=== PATIENT | male | born 1995 | race Hispanic/Latino ===

== ENCOUNTER 2022-11-03 15:08 | Emergency (ER) | payer SELFPAY ==
[2022-11-03 15:55] LABS: Specific Gravity > 1.030 (1.005-1.030); Urine Bacteria 20-50 /HPF (<20); Urine Bilirubin NEGATIVE (Negative); Urine Blood 3+ (OVER) (Negative); Urine Clarity Turbid (Clear); Urine Color Yellow (Yellow); Urine Glucose NEGATIVE (Negative); Urine Mucus 4+ /HPF (None Seen); Urine Protein 1+ (Negative); Urine RBC >50 /HPF (None Seen); Urine Urobilinogen 1+ (Normal); Urine pH 6.5 (5.0-7.0)
--- NOTE | 2022-11-03 17:05 | RAD REPORT ---
EXAM DESCRIPTION: CT - Stone Protocol - 11/03/2022 4:55 pm CLINICAL HISTORY: Flank pain. hematuria, low back pain COMPARISON: No comparisons TECHNIQUE: Axial images were obtained without oral or IV contrast. Lack of contrast limits solid org an and vascular assessment. The [id number] spans the entirety of the system partially obscuring uppermost abdomen and lung bases. Coronal reformatted images were obtained and reviewed. All CT scans are performed using dose optimization technique as appropriate and may include automated exposure control or mA/KV adjustment according to patient size. FINDINGS: The lower lung beth are clear. Imaged portions of the liver and spleen show no suspicious findings on non-contrast imaging. The panc reas and adrenal glands are normal. No pathologic lymphadenopathy in the abdomen or pelvis. No urinary tract stones or obstructive uropathy. Mild thickened and slightly inflamed urinary bladder . No bowel obstruction, free air, free fluid or abscess. Normal appendix noted. No significant bony abnormality. IMPRESSION: No urinary tract stones or obstructive uropathy. Mild cystitis is suspected.
--- NOTE | 2022-11-03 17:30 | ER ---
Nurse's Notes [facility] Name: David Gamble Age: 27 yrs Sex: Male : 1995 Arrival Date: 11/03/2022 Time: 15:08 Bed 2 Private MD: Diagnosis: UTI/ Urinary tract infection, site not specified Presentation: 11/03 15:11 Chief complaint: Patient states: peeing blood since last night , mid back pain and nj1 burning when he urinates. Coronavirus screen: At this time, the client does not indicate any symptoms associated with coronavirus-19. Ebola Screen: Patient negative for fever greater than or equal to 101.5 degrees Fahrenheit, and additional compatible Ebola Virus Disease symptoms Patient denies exposure to infectious person. Patient denies travel to an Ebola-affected area in the 21 days before illness onset. No symptoms or risks identified at this time. Initial Sepsis Screen: Does the patient meet any 2 criteria? No. Patient's initial sepsis screen is negative. Does the patient have a suspected source of infection? No. Patient's initial sepsis screen is negative. Risk Assessment: Do you want to hurt yourself or someone else? Patient reports no desire to harm self or others. Onset of symptoms was November 02, 2022. 15:11 Method Of Arrival: Ambulatory [facility] 15:11 Acuity: HEMALATHA 3 nj1 Triage Assessment: 16:00 General: Appears in no apparent distress. comfortable, Behavior is calm, cooperative. db Pain: Complains of pain in abdomen. Historical: - Allergies: 15:13 No Known Allergies; nj1 - Home Meds: 15:13 None [Active]; nj1 - PMHx: 15:13 None; nj1 - PSHx: 15:13 None; nj1 - Immunization history:: Client reports having NOT received the Covid vaccine. - Social history:: Smoking status: Patient denies any tobacco usage or history of. Screenin:45 [facility] ED Fall Risk Assessment (Adult) History of falling in the last 3 months, db including since admission No falls in past 3 months (0 pts) Confusion or Disorientation No (0 pts) Intoxicated or Sedated No (0 pts) Impaired Gait No (0 pts) Mobility Assist Device Used No (0 pt) Altered Elimination No (0 pt) Score/Fall Risk Level 0 - 2 = Low Risk Oriented to surroundings, Maintained a safe environment. Abuse screen: Denies threats or abuse. Denies injuries from another. Nutritional screening: No deficits noted. Tuberculosis screening: No symptoms or risk factors identified. Assessment: 15:43 Reassessment: Patient appears in no apparent distress at this time. Patient and/or db family updated on plan of care and expected duration. Pain level reassessed. Patient is alert, oriented x 3, equal unlabored respirations, skin warm/dry/pink. General: Appears in no apparent distress. comfortable, Behavior is calm, cooperative. Vital Signs: 15:11 BP 144 / 94; Pulse 91; Resp 16; Temp 97.7; Pulse Ox 100% ; Weight 84.37 kg; Height 5 nj1 ft. 6 in. ; Pain 8/10; 16:30 BP 140 / 83; Pulse 88; Resp 16; Pulse Ox 100% on R/A; db 17:49 BP 134 / 79; Pulse 76; Pulse Ox 100% on R/A; ap3 15:11 Body Mass Index 30.02 (84.37 kg, 167.64 cm) nj1 15:11 Pain Scale: Adult nj1 ED Course: 15:09 Patient arrived in ED. rg4 15:12 Ernst Pantoja PA is PHCP. cp 15:12 Guru Lundberg MD is Attending Physician. cp 15:13 Triage completed. nj1 15:14 Arm band placed on. nj1 15:27 Urinalysis W/Microscopic Sent. iw 15:30 Marianna Garcia, RN is Primary Nurse. db 16:45 Patient has correct armband on for positive identification. Bed in low position. Call db light in reach. Side rails up X 1. 16:57 CT Stone Protocol In Process Unspecified. EDMS 17:48 No provider procedures requiring assistance completed. Patient did not have IV access ap3 during this emergency room visit. Administered Medications: 17:20 CANCELLED (Physician Discretion): AZITHromycin PO 1 grams PO once cp 17:48 Drug: Rocephin (cefTRIAXone) IM 1 grams Route: IM; Site: right gluteus; ap3 17:49 Follow up: Response: No adverse reaction ap3 Medication: 17:49 VIS not applicable for this client. ap3 Outcome: 17:30 Discharge ordered by . cp 17:49 Discharged to home ambulatory. ap3 17:49 Condition: good 17:49 Discharge instructions given to patient, Instructed on discharge instructions, follow up and referral plans. medication usage, Demonstrated understanding of instructions, follow-up care, medications, Prescriptions given X 2. 17:53 Patient left the ED. ap3 Signatures: Dispatcher [employer] EDMS Blanca Robertson RN RN iw Ernst Pantoja PA PA cp Garcia, Rubi rg4 Noa Ortiz RN RN ap3 Marianna Garcia RN RN db Nora Burns RN RN nj1 Corrections: (The following items were deleted from the chart) 15:14 15:11 Pulse 91bpm; Resp 16bpm; Pulse Ox 100%; Temp 97.7F; 84.37 kg; Height 5 ft. 6 in.; nj1 BMI: 30.0; Pain 8/10, Adult; nj1
--- NOTE | 2022-11-03 17:31 | EDPHYS ---
Physician Documentation [facility] Name: David Gamble Age: 27 yrs Sex: Male : 1995 Arrival Date: 11/03/2022 Time: 15:08 Bed 2 Private MD: ED Physician Guru Lundberg HPI: 11/03 15:30 This 27 yrs old Male presents to ER via Ambulatory with complaints of Urinary cp Problem. 15:30 The patient presents with urinary symptoms, dysuria, hematuria that started last night, cp mid low back pain. Onset: The symptoms/episode began/occurred yesterday. Associated signs and symptoms: Pertinent positives: dysuria, fever, hematuria, Pertinent negatives: abdominal pain, constipation, vomiting. Severity of symptoms: in the emergency department the symptoms are unchanged, despite home interventions. 15:30 Patient reports he is and no concern for STIs. Denies penile discharge. cp Historical: - Allergies: 15:13 No Known Allergies; nj1 - Home Meds: 15:13 None [Active]; nj1 - PMHx: 15:13 None; nj1 - PSHx: 15:13 None; nj1 - Immunization history:: Client reports having NOT received the Covid vaccine. - Social history:: Smoking status: Patient denies any tobacco usage or history of. ROS: 15:35 Constitutional: Positive for chills, Negative for fever, poor PO intake. cp 15:35 Respiratory: Negative for cough, shortness of breath, wheezing. cp 15:35 Abdomen/GI: Negative for abdominal pain, nausea, vomiting, and diarrhea. 15:35 : Positive for hematuria, burning with urination, Negative for penile discharge, testicular pain Exam: 15:40 Constitutional: The patient appears in no acute distress, alert, awake, comfortable, cp non-toxic, well developed, well nourished. 15:40 Head/Face: Normocephalic, atraumatic. cp 15:40 Eyes: Periorbital structures: appear normal, Conjunctiva: normal, no exudate, no injection, Sclera: no appreciated abnormality, Lids and lashes: appear normal, bilaterally. 15:40 ENT: External ear(s): are unremarkable, Nose: is normal, Mouth: Lips: moist, Oral mucosa: pink and intact, moist, Posterior pharynx: is normal, airway is patent, no erythema, no exudate. 15:40 Chest/axilla: Inspection: normal. 15:40 Cardiovascular: Rate: normal, Rhythm: regular. 15:40 Respiratory: the patient does not display signs of respiratory distress, Respirations: normal, no use of accessory muscles, no retractions, labored breathing, is not present, Breath sounds: are clear throughout, no decreased breath sounds, no stridor, no wheezing. 15:40 Abdomen/GI: Inspection: abdomen appears normal, Bowel sounds: active, Palpation: abdomen is soft and non-tender, in all quadrants. 15:40 Back: pain, that is mild, of the low back area, ROM is normal. 15:40 Skin: no rash present. 15:40 Neuro: Orientation: to person, place \T\ time. Mentation: is normal, Motor: moves all fours, strength is normal, Sensation: is normal, Gait: is steady, at a normal pace, without difficulty. Vital Signs: 15:11 BP 144 / 94; Pulse 91; Resp 16; Temp 97.7; Pulse Ox 100% ; Weight 84.37 kg; Height 5 nj1 ft. 6 in. ; Pain 8/10; 16:30 BP 140 / 83; Pulse 88; Resp 16; Pulse Ox 100% on R/A; db 17:49 BP 134 / 79; Pulse 76; Pulse Ox 100% on R/A; ap3 15:11 Body Mass Index 30.02 (84.37 kg, 167.64 cm) nj1 15:11 Pain Scale: Adult nj1 MDM: 15:16 Patient medically screened. cp 16:00 Differential diagnosis: UTI, urinary retention, prostatitis, urethritis, kidney stone. cp 17:30 Data reviewed: vital signs, nurses notes, lab test result(s), radiologic studies, CT cp scan, and as a result, I will discharge patient. 17:30 Consideration of Admission/Observation Escalation of care including cp admission/observation considered. 17:33 Test considered but Not performed: Labs: cbc, bmp. cp 17:33 Counseling: I had a detailed discussion with the patient and/or guardian regarding: the cp historical points, exam findings, and any diagnostic results supporting the discharge/admit diagnosis, lab results, radiology results, the need for outpatient follow up, a family practitioner, to return to the emergency department if symptoms worsen or persist or if there are any questions or concerns that arise at home. 11/03 15:23 Order name: Urinalysis W/Microscopic; Complete Time: 16:32 cp 11/03 16:32 Interpretation: Reviewed. cp 11/03 15:58 Order name: Urine Culture EDME 11/03 15:37 Order name: CT Stone Protocol; Complete Time: 17:18 cp Administered Medications: 17:20 CANCELLED (Physician Discretion): AZITHromycin PO 1 grams PO once cp 17:48 Drug: Rocephin (cefTRIAXone) IM 1 grams Route: IM; Site: right gluteus; ap3 17:49 Follow up: Response: No adverse reaction ap3 Disposition Summary: 11/03/22 17:30 Discharge Ordered Location: Home cp Problem: new cp Symptoms: have improved cp Condition: Stable cp Diagnosis - UTI/ Urinary tract infection, site not specified cp Followup: cp - With: Private Physician - When: 1 - 2 days - Reason: Worsening of condition Discharge Instructions: - Discharge Summary Sheet cp - Urinary Tract Infection, Adult cp Forms: - Medication Reconciliation Form cp - Thank You Letter cp - Antibiotic Education cp - Prescription Opioid Use cp - Work release form ap3 Prescriptions: - Ibuprofen 800 mg Oral Tablet - take 1 tablet by ORAL route every 8 hours As needed take with food; 30 tablet; cp Refills: 0, Product Selection Permitted - cefpodoxime 200 mg Oral Tablet - take 1 tablet by ORAL route every 12 hours for 10 days with food; 20 tablet; cp Refills: 0, Product Selection Permitted Signatures: Dispatcher [employer] [facility] Ernst Pantoja PA PA cp Noa Ortiz RN RN ap3 Nora Burns RN RN nj1 Corrections: (The following items were deleted from the chart) 17:20 17:19 AZITHromycin PO 1 grams PO once ordered. cp cp
[2022-11-03] MEDS ORDERED: CEFTRIAXONE 1000 MG/VIAL ONE (17:44)
[2022-11-03] MEDS ORDERED: WATER FOR INJ,STERILE 10 ML ONE (17:44)
[2022-11-03] MEDS ORDERED: LIDOCAINE 1% MPF 5 ML VIAL ONE (17:47)
[2022-11-03 18:02] VITALS: TEMP 97.7; O2SAT 100
[2022-11-03 18:05] VITALS: BP 134/79
== END 2022-11-03 17:53 | disposition home or self-care (01) ==
LOC: ER 15:08
DX: N39.0 Urinary tract infection, site not specified (principal)
CPT/HCPCS: 74176; 76377; 81001; 87086; 87088; J0696; J2001